=== PATIENT | male | born 1965 | race Caucasian/White ===

== ENCOUNTER 2018-09-12 07:32 | Emergency (ER) | payer OTHER ==
[2018-09-12] MEDS ORDERED: Lactated Ringers 1,000 ML IV ONE (07:56)
[2018-09-12] MEDS ORDERED: Metoclopramide 10 MG/2 ML SDV IVPUSH ONE (07:56)
--- NOTE | 2018-09-12 08:08 | EDM.PDOC ---
ED HPI GENERAL MEDICAL PROBLEM - General Chief Complaint: Gastrointestinal Problem Stated Complaint: VOMITING, HIGH BLOOD SUGAR Time Seen by Provider: 09/12/18 07:55 Source of Information: Reports: Patient History Limitations: Reports: No Limitations - History of Present Illness INITIAL COMMENTS - FREE TEXT/NARRATIVE: 53 yo male with IDDM and an insulin pump presents with nausea and vomiting. Has also had some diarrhea, more yesterday. No hematemesis or hematochezia. No fever. Feels a little SOB. His glucose meter is reading about 350 this morning. He denies a hx of gastroparesis. Is here with his . Had a lot of heart burn until the vomiting started, then it went away. Used his inhaler more thinking his SOB was his asthma. Last took ASA about 4 days ago. No personal hx of CAD. Does not smoke. Onset: Gradual Onset Date: 09/11/18 Duration: Day(s): (1), Constant Location: Reports: Abdomen Quality: Reports: Other (heart burn, now resolved after he began vomiting.) Severity: Moderate Improves with: Reports: Other (vomiting) Worsens with: Reports: Other (unknown) Context: Reports: Other (see HPI) Associated Symptoms: Reports: Nausea/Vomiting, Shortness of Breath. Denies: Fever/Chills Treatments CAPTAIN CANNERY TENDER: Reports: Other (see below) (none) Generalized Pain Score (Numeric/FACES): 4 - Related Data Allergies Allergy/AdvReac Type Severity Reaction Status Date / Time Penicillins Allergy Hives Verified 10/28/16 08:51 Bagfzhi-Gco-Mrm Reductase Allergy Other Verified 11/11/16 09:46 Inhibitor Home Meds: Home Meds Insulin Aspart [Novolog Flexpen] 1 - 44 units SUBCUT ASDIRECTED 03/01/16 [ History] Mometasone/Formoterol [Dulera 200-5 MCG] 2 inh PO BID PRN 03/01/16 [History] Montelukast Sodium [Singulair] 10 mg PO BEDTIME 03/01/16 [History] Albuterol [Ventolin HFA] 2 puff INH QID PRN 10/02/16 [History] Aspirin [Adult Low Dose Aspirin EC] 81 mg PO DAILY 10/02/16 [History] Cholecalciferol (Vitamin D3) [Vitamin D3] 2,000 unit PO DAILY 10/02/16 [History] Multivitamin with Minerals [Multiple Vitamin] 1 tab PO DAILY 10/02/16 [History] Glucagon,Human Recombinant [Glucagon Emergency Kit] 1 mg IJ ASDIRECTED PRN 11/11 [History] Albuterol [Proventil Neb Soln] 3 ml INH ASDIRECTED PRN 09/12/18 [History] Past Medical History HEENT History: Reports: Hard of Hearing, Impaired Vision Respiratory History: Reports: Asthma Endocrine/Metabolic History: Reports: Diabetes, Type I Social & Family History - Tobacco Use Smoking Status *Q: Never Smoker - Caffeine Use Caffeine Use: Reports: Coffee - Alcohol Use Number of Drinks Per Day: 6 - Recreational Drug Use Recreational Drug Use: No ED ROS GENERAL - Review of Systems Review Of Systems: See Below Constitutional: Reports: Malaise HEENT: Reports: No Symptoms Respiratory: Reports: Shortness of Breath. Denies: Wheezing, Pleuritic Chest Pain, Cough, Sputum Cardiovascular: Reports: Other ("heart burn from his low abdomen on up his chest ", now gone.) Endocrine: Reports: High Glucose GI/Abdominal: Reports: Diarrhea, Nausea, Vomiting. Denies: Black Stool, Bloody Stool, Constipation, Distension, Flatus, Hematemesis, Hematochezia, Melena : Reports: No Symptoms Musculoskeletal: Reports: No Symptoms Skin: Reports: No Symptoms Neurological: Reports: No Symptoms Psychiatric: Reports: No Symptoms ED EXAM, GI/ABD - Physical Exam Exam: See Below Exam Limited By: No Limitations General Appearance: Alert, WD/WN, Mild Distress Eyes: Bilateral: Normal Appearance Ears: Normal External Exam, Normal Canal, Hearing Grossly Normal, Normal TMs Nose: Normal Inspection, No Blood Throat/Mouth: Normal Inspection, Normal Lips, Normal Oropharynx, Normal Voice, No Airway Compromise Head: Atraumatic, Normocephalic Neck: Normal Inspection Respiratory/Chest: No Respiratory Distress, Lungs Clear, Normal Breath Sounds, No Accessory Muscle Use, Other (mild tachypnea) Cardiovascular: Regular Rate, Rhythm, No Edema GI/Abdominal Exam: Soft, Non-Tender, No Distention, Abnormal Bowel Sounds ( somewhat decreased). No: Distended, Guarding, Rigid, Rebound, Tender Back Exam: Normal Inspection. No: CVA Tenderness (R), CVA Tenderness (L) Extremities: Normal Inspection, Normal Range of Motion, Non-Tender, No Pedal Edema Neurological: Alert, Oriented, CN II-XII Intact, Normal Cognition, No Motor/ Sensory Deficits Psychiatric: Normal Affect, Normal Mood Skin Exam: Warm, Dry, Intact, Normal Color, No Rash Lymphatic: No Adenopathy EKG INTERPRETATION EKG Date: 09/12/18 Time: 08:20 Rhythm: NSR Rate (Beats/Min): 105 [place]: Normal P-Wave: Present QRS: Normal ST-T: Depressed (inferior and lateral leads) QT: Normal Comparison: NA - No Prior EKG Course - Vital Signs Text/Narrative:: Unable to swallow pills here in the ER. Not able to bolus with his insulin pump , will give IV. Acceptance by Dr. Cabrera @ [place] @ 09[facility]. Last Recorded V/S: Last Vital Signs Temp 36.5 C 09/12/18 07:50 Pulse 106 H 09/12/18 08:37 Resp 16 09/12/18 07:50 BP 98/40 L 09/12/18 08:37 Pulse Ox 100 09/12/18 07:50 - Orders/Labs/Meds Orders: Active Orders 24 hr Category Date Time Status Cardiac Monitoring [RC] .As Directed Care 09/12/18 08:58 Active EKG Documentation Completion [RC] ASDIRECTED Care 09/12/18 08:08 Active CBC W/O DIFF,HEMOGRAM [HEME] Stat Lab 09/12/18 09:22 Ordered Heparin Sodium/D5W [Heparin 25,000 Units in D5W 500 ML] Med 09/12/18 09:15 Ordered 25,000 units in 500 ml IV TITRATE Morphine Med 09/12/18 09:29 Once 4 mg IVPUSH ONETIME ONE Sodium Chloride 0.9% [Normal Saline] 1,000 ml Med 09/12/18 09:16 Ordered IV .BOLUS EKG 12 Lead [EK] Routine Ther 09/12/18 08:08 Ordered Medication Orders Heparin Sodium/Dextrose (Heparin 25,000 Units In D5w 500 Ml) 25,000 units in 500 mls @ 18 mls/hr IV TITRATE DENNYS Last Admin: 09/12/18 09:18 Dose: 900 units/hr, 18 mls/hr Sodium Chloride (Normal Saline) 1,000 mls @ 1,000 mls/hr IV .BOLUS ONE Stop: 09/12/18 10:15 Last Admin: 09/12/18 09:23 Dose: 1,000 mls/hr Labs: Laboratory Tests 09/12/18 09/12/18 09/12/18 Range/Units 08:02 08:13 08:13 VBG pH 7.188 L (7.350-7.450) Sodium 123 L (140-148) mmol/L Potassium 6.6 H* (3.6-5.2) mmol/L Chloride 84 L (100-108) mmol/L Carbon Dioxide 8 L D (21-32) mmol/L Anion Gap 37.6 H (5.0-14.0) mmol/L BUN 41 H D (7-18) mg/dL Creatinine 2.2 H D (0.8-1.3) mg/dL Est Cr Clr Drug Dosing 31.77 mL/min Estimated GFR (MDRD) 31 L (>60) Glucose 743 H* (74-106) mg/dL Calcium 10.3 H D (8.5-10.1) mg/dL Troponin I 2.203 H* (0.000-0.056) ng/mL Meds: Medications Generic Name Dose Route Start Last Admin Trade Name Freq PRN Reason Stop Dose Admin Heparin Sodium/Dextrose 25,000 units in 500 mls @ 18 mls/hr 09/12/18 09:15 09:18 Heparin 25,000 Units In D5w 500 Ml IV 900 units/hr TITRATE DENNYS 18 mls/hr Administration 900 UNITS/HR Sodium Chloride 1,000 mls @ 1,000 mls/hr 09/12/18 09:16 09/12/18 09:23 Normal Saline IV 09/12/18 10:15 1,000 mls/hr .BOLUS ONE Administration Discontinued Medications Generic Name Dose Route Start Last Admin Trade Name Freq PRN Reason Stop Dose Admin Aspirin 324 mg 09/12/18 08:27 09/12/18 08:32 Aspirin PO 09/12/18 08:28 324 mg ONETIME ONE Administration Aspirin 300 mg 09/12/18 09:30 Aspirin RECTAL DAILY DENNYS Clopidogrel Bisulfate 600 mg 09/12/18 09:01 09/12/18 09:05 Plavix PO 09/12/18 09:02 600 mg ONETIME ONE Administration Clopidogrel Bisulfate Confirm 09/12/18 09:12 09/12/18 09:15 Plavix Administered 09/12/18 09:13 Not Given Dose 225 mg .ROUTE .STK-MED ONE Heparin Sodium (Porcine) 4,000 units 09/12/18 09:10 09/12/18 09:18 Heparin Sodium IVPUSH 09/12/18 09:11 4,000 units ONETIME ONE Administration Lactated Ringer's 1,000 mls @ 1,000 mls/hr 09/12/18 07:56 09/12/18 08:07 Ringers, Lactated IV 09/12/18 08:55 1,000 mls/hr BOLUS ONE Administration Insulin Human Regular 20 unit 09/12/18 09:10 09/12/18 09:18 Humulin R IVPUSH 09/12/18 09:11 20 unit ONETIME ONE Administration Metoclopramide HCl 10 mg 09/12/18 07:56 09/12/18 08:07 Reglan IVPUSH 09/12/18 07:57 10 mg ONETIME ONE Administration Metoprolol Tartrate 25 mg 09/12/18 08:32 09/12/18 08:37 Lopressor PO 09/12/18 08:33 25 mg ONETIME ONE Administration Ondansetron HCl 4 mg 09/12/18 08:27 09/12/18 08:33 Zofran IVPUSH 09/12/18 08:28 4 mg ONETIME ONE Administration Departure - Departure Time of Disposition: 09:35 Disposition: DC/Tfer to Acute Hospital 02 Condition: Critical Clinical Impression: Cardiac ischemia, Elevated troponin, Hyperglycemia due to type 1 diabetes mellitus Nausea and vomiting Qualifiers: Vomiting type: unspecified Vomiting Intractability: non-intractable Qualified Code(s): R11.2 - Nausea with vomiting, unspecified DKA (diabetic ketoacidoses) Qualifiers: Diabetes mellitus type: type 1 Diabetes mellitus complication detail: without coma Qualified Code(s): E10.10 - Type 1 diabetes mellitus with ketoacidosis without coma - Discharge Information *PRESCRIPTION DRUG MONITORING PROGRAM REVIEWED*: No *COPY OF PRESCRIPTION DRUG MONITORING REPORT IN PATIENT SERENA: No Referrals: Ritesh Salas RIDES ATTENDANT [Primary Care Provider] - Forms: ED Department Discharge - My Orders Last 24 Hours: My Active Orders 09/12/18 08:08 EKG Documentation Completion [RC] ASDIRECTED EKG 12 Lead [EK] Routine 09/12/18 08:58 Cardiac Monitoring [RC] .As Directed 09/12/18 09:15 Heparin Sodium/D5W [Heparin 25,000 Units in D5W 500 ML] 25,000 units in 500 ml IV TITRATE 09/12/18 09:16 Sodium Chloride 0.9% [Normal Saline] 1,000 ml IV .BOLUS 09/12/18 09:22 CBC W/O DIFF,HEMOGRAM [HEME] Stat 09/12/18 09:29 Morphine 4 mg IVPUSH ONETIME ONE - Assessment/Plan Last 24 Hours: My Active Orders 09/12/18 08:08 EKG Documentation Completion [RC] ASDIRECTED EKG 12 Lead [EK] Routine 09/12/18 08:58 Cardiac Monitoring [RC] .As Directed 09/12/18 09:15 Heparin Sodium/D5W [Heparin 25,000 Units in D5W 500 ML] 25,000 units in 500 ml IV TITRATE 09/12/18 09:16 Sodium Chloride 0.9% [Normal Saline] 1,000 ml IV .BOLUS 09/12/18 09:22 CBC W/O DIFF,HEMOGRAM [HEME] Stat 09/12/18 09:29 Morphine 4 mg IVPUSH ONETIME ONE
[2018-09-12] MEDS ORDERED: Ondansetron 4 MG/2 ML SDV IVPUSH ONE (08:27)
[2018-09-12] MEDS ORDERED: Aspirin 81 MG Tab.Chew PO ONE (08:27)
[2018-09-12] MEDS ORDERED: Metoprolol Tartrate 25 MG Tab PO ONE (08:32)
[2018-09-12 08:37] VITALS: BP 98/40
[2018-09-12] MEDS ORDERED: Clopidogrel 75 MG Tab PO ONE (09:01)
[2018-09-12] MEDS ORDERED: Insulin Regular, Human 100 Units/ML 3 ML Vial IVPUSH ONE (09:10)
[2018-09-12] MEDS ORDERED: Heparin Sodium 5,000 Units/ML Vial IVPUSH ONE (09:10)
[2018-09-12] MEDS ORDERED: Clopidogrel 75 MG Tab ONE (09:12)
[2018-09-12] MEDS ORDERED: Heparin Sodium/D5W 25,000 UNITS/500 ML BAG IV SCH (09:15)
[2018-09-12] MEDS ORDERED: Sodium Chloride 0.9% 1,000 ML IV ONE (09:16)
[2018-09-12] MEDS ORDERED: Morphine 4 MG/ML Syringe IVPUSH ONE (09:29)
[2018-09-12] MEDS ORDERED: Aspirin 300 MG Supp RECTAL SCH (09:30)
== END 2018-09-12 10:06 ==
LOC: JP.ED 07:32
DX: E10.10 Type 1 diabetes mellitus with ketoacidosis without coma (principal); I25.9 Chronic ischemic heart disease, unspecified; E10.65 Type 1 diabetes mellitus with hyperglycemia; R79.89 Other specified abnormal findings of blood chemistry; J45.909 Unspecified asthma, uncomplicated; Z88.0 Allergy status to penicillin; Z88.8 Allergy status to other drugs, medicaments and biological substances; Z79.4 Long term (current) use of insulin; Z79.899 Other long term (current) drug therapy; Z79.82 Long term (current) use of aspirin
CPT/HCPCS: 36415; 80048; 82800; 84484; 85027; 93005; 93010; 96361; 96374; 96375; 96376; 99285; A9270; J1644; J1815; J2270; J2405; J2765; J7030; J7120

== ENCOUNTER 2019-03-15 23:03 | Emergency (ER) | payer OTHER ==
[2019-03-15] MEDS ORDERED: Sodium Chloride 0.9% 500 ML IV ONE (23:42)
[2019-03-15] MEDS ORDERED: Acetaminophen 500 MG Tab PO ONE (23:48)
[2019-03-15] MEDS ORDERED: Insulin Regular, Human 100 Units/ML 3 ML Vial SUBCUT ONE (23:49)
--- NOTE | 2019-03-15 23:58 | EDM.PDOC ---
ED HPI GENERAL MEDICAL PROBLEM - General Chief Complaint: Diabetic Complaint Stated Complaint: HIGH BLOOD SUGER Time Seen by Provider: 03/15/19 23:40 Source of Information: Reports: Patient, Old Records, RN History Limitations: Reports: No Limitations - History of Present Illness INITIAL COMMENTS - FREE TEXT/NARRATIVE: 53 yo male presents with elevated blood sugar. Thinks his pump is not working as when he enters his elevated BS and expects a bolus dose of insulin his blood sugars don't budge. He has a mild MCKEON tonight, but otherwise feels well. He has no nausea, diaphoresis, chest pains, or fever. Is not noticing increased thirst or urination. Blood sugars have been running higher than usual recently and he is not sure why. Also, notes more "heart burn" lately, sometimes with belching. Took his ASA as prescribed. Onset: Today (Blood sugars into the 300's recently. Higher tonight.) Onset Date: 03/15/19 Duration: Hour(s):, Getting Worse Location: Reports: Generalized Quality: Reports: Ache (mild MCKEON, no other pain) Severity: Mild Improves with: Reports: None Worsens with: Reports: Other (time) Context: Reports: Other (See HPI) Associated Symptoms: Reports: Headaches (mild). Denies: Fever/Chills, Nausea/ Vomiting Treatments FACILITY SECURITY OFFICER: Reports: Other (see below) (tried to get his insulin pump to give insulin boluses, even changed out the pump without effect. ) Frontal Headache Pain Score (Numeric/FACES): 4 - Related Data Allergies Allergy/AdvReac Type Severity Reaction Status Date / Time Penicillins Allergy Hives Verified 10/28/16 08:51 Wcuwady-Ryb-Lys Reductase Allergy Other Verified 11/11/16 09:46 Inhibitor Home Meds: Home Meds Insulin Aspart [Novolog Flexpen] 1 - 44 units SUBCUT ASDIRECTED 03/01/16 [ History] Mometasone/Formoterol [Dulera 200-5 MCG] 2 inh PO BID PRN 03/01/16 [History] Montelukast Sodium [Singulair] 10 mg PO BEDTIME 03/01/16 [History] Albuterol [Ventolin HFA] 2 puff INH QID PRN 10/02/16 [History] Aspirin [Adult Low Dose Aspirin EC] 81 mg PO DAILY 10/02/16 [History] Cholecalciferol (Vitamin D3) [Vitamin D3] 2,000 unit PO DAILY 10/02/16 [History] Multivitamin with Minerals [Multiple Vitamin] 1 tab PO DAILY 10/02/16 [History] Glucagon,Human Recombinant [Glucagon Emergency Kit] 1 mg IJ ASDIRECTED PRN 11/11 [History] Albuterol [Proventil Neb Soln] 3 ml INH ASDIRECTED PRN 09/12/18 [History] Past Medical History HEENT History: Reports: Hard of Hearing, Impaired Vision Cardiovascular History: Reports: Stents Respiratory History: Reports: Asthma Endocrine/Metabolic History: Reports: Diabetes, Type I Insulin Pump Model and Floor Scraper: omnipod Type of Insulin Used in Pump: novolog Date Insulin Bottle Opened: t When was Your Last Insulin Site/Set Changed: t Do You Have Enough Pump Supplies for Your Hospital Stay: Yes Who Manages Your Pump: Family/Caregiver Other/Name of Person Who Manages Your Pump: Who Medically Manages Your Pump (Provider): ritesh salas Basal Rate (Units/hr): 0.35 Do You Give Correction Boluses or Sliding Scale: Yes Patient/Family Able to Supply Written Copy of Sliding Scale: No Patient Able to Demonstrate: Current Pump Settings (Basal Rates), Describe How to Change Infusion Set & Insertion Set, How to Get to Bolus Settings & Administer if Needed - Infectious Disease History Infectious Disease History: Reports: Chicken Pox Social & Family History - Tobacco Use Smoking Status *Q: Never Smoker - Caffeine Use Caffeine Use: Reports: Coffee - Recreational Drug Use Recreational Drug Use: No ED ROS GENERAL - Review of Systems Review Of Systems: See Below Constitutional: Reports: No Symptoms HEENT: Reports: No Symptoms Respiratory: Reports: No Symptoms Cardiovascular: Reports: No Symptoms Endocrine: Reports: High Glucose GI/Abdominal: Reports: No Symptoms : Reports: No Symptoms Musculoskeletal: Reports: Neck Pain (mild neck stiffness) Skin: Reports: No Symptoms Neurological: Reports: Headache (mild) Psychiatric: Reports: No Symptoms ED EXAM GENERAL NO PERIP PULSE - Physical Exam Exam: See Below Exam Limited By: No Limitations General Appearance: Alert, WD/WN, No Apparent Distress Eye Exam: Right Eye: Nystagmus, Bilateral Eye: Normal Inspection Ears: Normal External Exam, Normal Canal, Hearing Grossly Normal, Normal TMs Nose: Normal Inspection, No Blood Throat/Mouth: Normal Inspection, Normal Lips, Normal Oropharynx, Normal Voice, No Airway Compromise Head: Atraumatic, Normocephalic Neck: Normal Inspection Respiratory/Chest: No Respiratory Distress, Lungs Clear, Normal Breath Sounds, No Accessory Muscle Use Cardiovascular: Regular Rate, Rhythm, No Edema GI/Abdominal: Normal Bowel Sounds, Soft, Non-Tender, No Distention Back Exam: Normal Inspection. No: CVA Tenderness (R), CVA Tenderness (L) Extremities: Normal Inspection, Normal Range of Motion, Non-Tender, No Pedal Edema Neurological: Alert, Oriented, CN II-XII Intact, Normal Cognition, No Motor/ Sensory Deficits Psychiatric: Normal Affect, Normal Mood Skin Exam: Warm, Dry, Intact, Normal Color, No Rash EKG INTERPRETATION EKG Date: 03/16/19 Time: 00:30 Rhythm: NSR Rate (Beats/Min): 71 Orange: Normal P-Wave: Present QRS: Normal ST-T: Normal QT: Normal Comparison: Change From Previous EKG (Normal EKG now, ST depression now resolved.) Course - Vital Signs Text/Narrative:: Accepted in transfer by Dr. Garcia @ [facility], Hospitalist. Last Recorded V/S: Last Vital Signs Temp 36.0 C 03/15/19 23:42 Pulse 69 03/16/19 00:59 Resp 18 03/16/19 00:59 BP 113/66 03/16/19 00:59 Pulse Ox 97 03/15/19 23:42 - Orders/Labs/Meds Orders: Active Orders 24 hr Category Date Time Status EKG Documentation Completion [RC] ASDIRECTED Care 03/16/19 00:30 Active EKG 12 Lead [EK] Routine Ther 03/16/19 00:29 Ordered Labs: Laboratory Tests 03/16/19 Range/Units 00:28 Sodium 130 L (140-148) mmol/L Potassium 4.2 (3.6-5.2) mmol/L Chloride 96 L (100-108) mmol/L Carbon Dioxide 25 D (21-32) mmol/L Anion Gap 13.2 (5.0-14.0) mmol/L BUN 17 D (7-18) mg/dL Creatinine 1.2 (0.8-1.3) mg/dL Est Cr Clr Drug Dosing 58.24 mL/min Estimated GFR (MDRD) > 60 (>60) Glucose 559 H* (74-106) mg/dL Calcium 8.8 (8.5-10.1) mg/dL Troponin I 0.150 H* (0.000-0.056) ng/mL Meds: Medications Discontinued Medications Generic Name Dose Route Start Last Admin Trade Name Marline PRN Reason Stop Dose Admin Acetaminophen 1,000 mg 03/15/19 23:48 03/16/19 00:11 Tylenol Extra Strength PO 03/15/19 23:49 1,000 mg ONETIME ONE Administration Sodium Chloride 500 mls @ 1,000 mls/hr 03/15/19 23:42 03/16/19 00:12 Normal Saline IV 03/16/19 00:11 1,000 mls/hr .BOLUS ONE Administration Insulin Human Regular 20 unit 03/15/19 23:49 03/16/19 00:10 Humulin R SUBCUT 03/15/19 23:50 20 units ONETIME ONE Administration Insulin Human Regular 15 unit 03/16/19 00:54 03/16/19 00:57 Humulin R SUBCUT 03/16/19 00:55 15 units ONETIME ONE Administration Departure - Departure Time of Disposition: 01:30 Disposition: DC/Tfer to Acute Hospital 02 Condition: Fair Clinical Impression: Elevated troponin, Elevated blood sugar - Discharge Information *PRESCRIPTION DRUG MONITORING PROGRAM REVIEWED*: No *COPY OF PRESCRIPTION DRUG MONITORING REPORT IN PATIENT SERENA: No Referrals: Ritesh Salas NP [Primary Care Provider] - Forms: ED Department Discharge Additional Instructions: To [facility], direct admission, via ALS ground. - My Orders Last 24 Hours: My Active Orders 03/16/19 00:29 EKG 12 Lead [EK] Routine 03/16/19 00:30 EKG Documentation Completion [RC] ASDIRECTED - Assessment/Plan Last 24 Hours: My Active Orders 03/16/19 00:29 EKG 12 Lead [EK] Routine 03/16/19 00:30 EKG Documentation Completion [RC] ASDIRECTED
[2019-03-16] MEDS ORDERED: Insulin Regular, Human 100 Units/ML 3 ML Vial SUBCUT ONE (00:54)
[2019-03-16 01:00] VITALS: BP 113/66; PULSE 69
[2019-03-16] MEDS ORDERED: Heparin Sodium 5,000 Units/ML Vial IVPUSH ONE (01:06)
[2019-03-16] MEDS ORDERED: Heparin Sodium/D5W 25,000 UNITS/500 ML BAG IV SCH (01:15)
== END 2019-03-16 01:49 ==
LOC: JP.ED 23:03
DX: E10.65 Type 1 diabetes mellitus with hyperglycemia (principal); R79.89 Other specified abnormal findings of blood chemistry; J45.909 Unspecified asthma, uncomplicated; Z88.0 Allergy status to penicillin; Z88.8 Allergy status to other drugs, medicaments and biological substances; Z79.4 Long term (current) use of insulin; Z79.82 Long term (current) use of aspirin; Z79.51 Long term (current) use of inhaled steroids
CPT/HCPCS: 36415; 80048; 82962; 84484; 93005; 96365; 99284; A9270; J1644; J1815; J7040